=== PATIENT | male | born 1960 | race Two or more races ===

== ENCOUNTER 2017-10-28 13:03 | Outpatient (CLI) | payer OTHER ==
[~2017-10-28 13:03] MED LIST: AMBIEN10 MG PO; ATARAX10 MG PO; NABUMETONE500 MG PO; OMEPRAZOLE20 M1 PO; PERCOCET 5/3251 TAB PO
== END 2017-10-28 13:06 | disposition home or self-care (01) ==
LOC: MRI 13:03
DX: M25.511 Pain in right shoulder (principal)
CPT/HCPCS: 73218

== ENCOUNTER 2017-11-05 08:03 | Outpatient (CLI) | payer OTHER | END 2017-11-05 08:16 | disposition home or self-care (01) | LOC: NUCLEAR 08:03 | DX: M54.5 Low back pain (principal); M46.1 Sacroiliitis, not elsewhere classified; M06.09 Rheumatoid arthritis without rheumatoid factor, multiple sites | CPT/HCPCS: 78320; 78315; A9503 ==

== ENCOUNTER 2019-04-08 07:11 | Outpatient (CLI) | payer OTHER | END 2019-04-08 07:16 | disposition home or self-care (01) | LOC: SONOGRAMA 07:11 → MAMO-SONO 09:15 | DX: M25.511 Pain in right shoulder (principal) ==

== ENCOUNTER 2019-04-22 10:20 | Outpatient (CLI) | payer OTHER | END 2019-04-22 11:04 | disposition home or self-care (01) | LOC: SONOGRAMA 10:20 | DX: M25.512 Pain in left shoulder (principal) ==

== ENCOUNTER → 2019-11-11 | Outpatient (CLI) | payer OTHER | END | disposition home or self-care (01) | LOC: RAD 09:22 | DX: M25.512 Pain in left shoulder (principal) ==

== ENCOUNTER 2021-11-16 07:42 | Outpatient (CLI) | payer OTHER | END 2021-11-16 07:46 | disposition home or self-care (01) | LOC: SONOGRAMA 07:42 | PROVIDERS: ATTEND Internal Medicine Gastroenterology | DX: K80.20 Calculus of gallbladder without cholecystitis without obstruction (principal) ==

== ENCOUNTER 2022-01-24 07:14 | Outpatient (CLI) | payer OTHER | END 2022-01-24 07:27 | disposition home or self-care (01) | LOC: SONOGRAMA 07:14 | PROVIDERS: ATTEND Internal Medicine Gastroenterology | DX: R10.9 Unspecified abdominal pain (principal); R31.1 Benign essential microscopic hematuria; N40.0 Benign prostatic hyperplasia without lower urinary tract symptoms; F52.21 Male erectile disorder ==

== ENCOUNTER → 2022-04-17 | Outpatient (CLI) | payer OTHER | END | disposition home or self-care (01) | LOC: TOM 12:01 | DX: J34.2 Deviated nasal septum (principal); J32.4 Chronic pansinusitis ==

== ENCOUNTER 2022-10-11 11:17 | Outpatient (CLI) | payer OTHER | END 2022-10-11 11:33 | disposition home or self-care (01) | LOC: MRI 11:17 | PROVIDERS: ATTEND Orthopaedic Surgery | DX: M25.512 Pain in left shoulder (principal) | CPT/HCPCS: 73221 ==

== ENCOUNTER 2023-03-25 09:49 | Outpatient (CLI) | payer OTHER | END 2023-03-25 10:01 | disposition home or self-care (01) | LOC: SONOGRAMA 09:49 | PROVIDERS: ATTEND Urology | DX: N40.0 Benign prostatic hyperplasia without lower urinary tract symptoms (principal); R31.1 Benign essential microscopic hematuria; F52.21 Male erectile disorder ==

== ENCOUNTER 2024-03-19 10:06 | Outpatient (CLI) | payer OTHER | END 2024-03-19 10:07 | disposition home or self-care (01) | LOC: SONOGRAMA 10:06 | PROVIDERS: ATTEND Urology | DX: N40.0 Benign prostatic hyperplasia without lower urinary tract symptoms (principal); F52.21 Male erectile disorder; R31.1 Benign essential microscopic hematuria ==

== ENCOUNTER 2025-04-27 10:50 | Outpatient (CLI) | payer OTHER | END 2025-04-27 10:52 | disposition home or self-care (01) | LOC: SONOGRAMA 10:50 | PROVIDERS: ATTEND Urology | DX: N40.0 Benign prostatic hyperplasia without lower urinary tract symptoms (principal); F52.21 Male erectile disorder; R31.1 Benign essential microscopic hematuria ==